=== PATIENT | female | born 1945 | race Caucasian/White ===

== ENCOUNTER 2016-04-14 13:03 | Inpatient (IN) | payer MEDICARE, OTHER ==
[~2016-04-14] VITALS: Ht 142.2 cm; Wt 42.9 kg
[~2016-04-14 13:03] MED LIST: ASPI81TA3 PO; BUPR150T12 PO; CITA40TA13 PO; FLUT16SP NOSTRIL; GABA-504 PO; KLO5T PO; LEVO25TA5 PO; METH-295 PO; METO10TA3 PO; MULT-1018 PO
[2016-04-14] MEDS ORDERED: KLO5T PO (17:08)
[2016-04-14] MEDS ORDERED: LISI-571 PO (17:15)
[2016-04-14] MEDS ORDERED: ATOR20TA PO (17:18)
[2016-04-14] MEDS ORDERED: Alum-Mag Hydrox-Simeth 30 mL Suspension PO PRN (18:25)
[2016-04-14] MEDS ORDERED: Magnesium Hydroxide 10 mL Oral Concentration PO PRN (18:25)
[2016-04-14] MEDS ORDERED: Benzocaine-Menthol Lozenge 2/Pkg PO PRN (18:25)
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
[2016-04-14 20:29] VITALS: BP 135/74; PULSE 56; RESP 18
[2016-04-14] MEDS: Zolpidem 5 mg Tablet for FEMALE or >65YO PO PRN (22:44)
--- NOTE | 2016-04-15 04:03 | NUR ---
Observations from [id number] Pts thinking has been strange and delusional. "I need my nurse to make sure my urine shows MDMA because that's what put me in here" "I don't want to talk to the Dr. due to conflict of interest because I used to work here, I only want to talk to the reading teacher." Pt has also been very needy with staff, making various request throughout the night. Pt attend wrap up group, but wasn't here this morning to set a goal so pt did not want to participate. Pt appeared asleep at 2315 and has remained asleep throughout the night. Pt has been monitored every 15 minutes as directed.
--- NOTE | 2016-04-15 05:27 | NUR ---
Sleep 11p-7a Adequate sleep through the night with no noted distress or awakening per protocol checks. Total sleep 5.75+ hours. PRN Ambien used to assist with sleep.
[2016-04-15 10:08] VITALS: BP 150/63; PULSE 46; RESP 12
[2016-04-15] MEDS: hydrOXYzine Pamoate 25 mg Capsule PO PRN (13:33)
--- NOTE | 2016-04-15 17:37 | NUR ---
Lug Loader./ c.m. S.:"I'm doing better today. I don't need to be here. I have a lot of legal things to take care of in [place] but I'm stuck here. I'm not psychotic. Nobody believes me. I don't want my children to be involved in my care here. " O.: met with pt. to complete Psychosocial and Treatment plan and goals. Pt. is KENDRA 72 hrs hold as GD. She had multiple hospitalizations in the past. She is connected with mental health services. She lives alone. She didn't want to share her info with her adult children. She denied SI/HI, denied AH/VH, denied depression or anxiety. She talked about "that girl who is doing all that trouble." She denied using drugs. She believed that her primary diagnosis is ADHD. A.: pt. is cooperative, confused and delusional, internally preoccupied. P.: monitor behavior, monitor for safety, monitor meds intake; follow care plan.
--- NOTE | 2016-04-15 17:52 | NUR ---
Observations 0700 to 1900 Pt affect and mood was isolative, flat and needy at times. Pt was in her room most of the day. Pt ate meals in D.R. and ate approximately 75% of meals. Pt ate snack. Pt behavior was appropriate. Pt was in her room most of the shift. Pt gives short answers when approached. Pt did not attend groups or unit activities today. Pt attended community meeting and set a goal for the day. Pt rated her mood 5-6 out of 10, with 10 being the highest. Pt was observed every 15 minutes throughout the shift as ordered.
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
--- NOTE | 2016-04-15 20:46 | NUR ---
PT REFUSED HS HALDOL Pt. reports Haldol "makes me agitated" and that she would prefer to only take it in the a.m. because otherwise it will keep her up at night. Education provided.
--- NOTE | 2016-04-15 20:58 | HP ---
[address] [address] HISTORY AND PHYSICAL PATIENT: KLEVER SMITH : 1945 MR#: [id number] ADMIT: 04/14/2016 JOB ID: [id number] IDENTIFICATION: The patient is a 69-year-old, single, white female. She lives independently in the residential center in [place]. She has two daughters and a son. 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 She receives Social Security fdc monthly. She lived in [place] until 2013 when she moved to [place]. She is followed here in [place] by Dr. Babin. REASON FOR ADMISSION: Client was detained at [facility] in [place] after her landlord called the police concerned that the patient was confused, disorganized, and causing significant disruption. She was KENDRA'd on a 72-hour hold as gravely disabled. HISTORY OF PRESENT ILLNESS: The patient presents today for evaluation and treatment of psychosis. I met with her for a 60- minute evaluation and reviewed course and records kept by [facility] in [place] as well as [facility] staff records. She has been here on similar involuntary treatment hold in 2012 and 2013. Client's main issue is psychosis and paranoia. Co-occurring issues are interpersonal relationship conflicts related to stress at her home. The condition is acute and has been developing over six months. At present, it is of a moderate intensity manifesting with symptoms of increased paranoia, paranoid delusions, and increased thought disorganization. She has a rather fixed delusional belief that a neighbor is stalking her, is breaking into her house, and is drugging her at night. All the above are made worse by poor sleep, and when she is not taking her medications. She reported to the [facility] staff that she has not been taking her medications for the past six months. To me, she reports that she has been taking her gabapentin, her Celexa, Klonopin, and Ritalin, but is not taking her Wellbutrin. She is currently presenting with no signs of emotional liability, and mild cognitive deficits. She is showing moderate impairment in insight, judgment and reality testing. Her coping skills, for unclear reasons, have been overwhelmed. PSYCHIATRIC REVIEW OF SYSTEMS: For depression and krista were negative. Again it is unclear what stressors may be driving this current episode. PAST HISTORY MEDICATIONS: 1. Aspirin 81 daily. 2. Gabapentin 400 q.i.d. 3. Levothyroxine 25 daily. 4. Celexa 40 daily. 5. Klonopin 0.75 daily. 6. Ritalin 10 q.i.d. ALLERGIES: None. ILLNESSES: Bronchitis, hypothyroidism, gastroesophageal reflux disease, back pain. Has had two surgeries. FAMILY MEDICAL HISTORY: Noncontributory. PAST PSYCHIATRIC HISTORY: Client sees Dr. Babin outpatient since 2013 when she was admitted here on involuntary treatment hold. She has also seen Dr. Audelia Curiel, and has been diagnosed intermittently with bipolar disorder, attention deficit disorder, alcohol abuse, and personality disorder. PSYCHOSOCIAL HISTORY: Client born in [place]. She states she had great parents and a good childhood. 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 HISTORY OF TRAUMA: Client denies. DRUG AND ALCOHOL: Client denies lethality. Client denies previous suicide attempt. No suicidal ideation. RELATIONSHIP: for 25 years. . Two daughters, one son. CHEONDOISM: Yazidism. LEGAL HISTORY: None. PHYSICAL EXAMINATION: Well-hydrated, well developed, normal gait. Balance steady. Vital signs: 150/63, pulse 46, respirations 12. Afebrile. MENTAL STATUS EXAMINATION: Client neatly dressed, calm, pleasant. She had good eye contact. Her behavior was somewhat restless but easily redirectable and her attitude was pleasant and cooperative. Her speech was somewhat pressured. Mood was euthymic. Affect congruent. Normal intensity. Thought process: Client has a difficult time relating a coherent history of recent events. Her thought process is generally concrete but she was able to appreciate both simple and complex abstractions that does not appear to be responding to internal stimuli. She denies ideas of reference. No loosening of associations. Thought content: Significant for themes of wanting to have clarity about what is happening and why she was detained. She is looking forward to returning back to her home and feels like she was misunderstood by the ER staff. She does believe that a neighbor is stealing her medications, is breaking into her house at night, and drugging her while she is asleep. Client alert and oriented to person, place, and date. Immediate, short, and long-term memory were actually intact. Client had 27/30 on a Mini-Mental Status Exam. Concentration and attention were mildly impaired. Insight and judgment: Moderate impairment. Impulse control highly contained. Reality testing: Moderate impairment, mostly due to a rather fixed delusional belief. Competence to handle current stressors: Is currently being overwhelmed. LABS: CBC, liver function, electrolytes, thyroid normal. There was some note in [facility] that the urine tox screen was positive for Ecstasy on one try and negative on the next. I could not find any verification in the records that were sent to us about a UDS. Client denies any drug use. 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 She intermittently discontinues her medication and requires inpatient hospitalizations after 3-6 months being off her meds. She describes being off her meds for the past six months to [facility] staff. To me she states she has been taking her meds regularly except has been off Wellbutrin for two months. It is difficult to place all this together. Client was significantly improved today from the reports that I had over the weekend. She did receive both Geodon and Seroquel prior to being transferred from [facility] and it is possible some of the antipsychotic medications are helping her clear. DIAGNOSIS: [place] I. 1. Psychosis unspecified. 2. Rule out bipolar mood disorder with psychosis. 3. Rule out iatrogenic stimulants triggering psychosis and krista. 4. History of alcohol abuse. [place] II. Defer. [place] III. Bronchitis, hypothyroidism, gastroesophageal reflux disease. [place] IV. Unknown. [place] V. Current Global Assessment of Functioning equal to 35. PLAN: Recommend client be admitted to our unit and be provided with a high degree of safety through the structure and active adult engagement she will receive here. Will have her participate in one-to-one unit and group activities focused on improving coping skills and reality based thinking. Will continue client on gabapentin at 400 q.i.d. Will decrease Celexa to 20 mg in case this is triggering krista and psychosis. Will decrease Ritalin to 5 mg q.i.d. to minimize potential contribution to psychosis. Will continue Klonopin at 0.75 t.i.d. Client is on an involuntary treatment hold, but if she continues to improve, imagine we will be able to drop this hold and discharge her later this week.
--- NOTE | 2016-04-16 01:21 | NUR ---
Observations 1900 to 0700 Pt isolated to herself for most of the evening. Pt did come out of her room briefly on a few occasions. Pt seemed a bit upset and anxious. Pt was polite and cooperative with staff. Pt first appeared asleep at 22:00 and was observed every 15 minutes through the night as directed.
--- NOTE | 2016-04-16 05:54 | NUR ---
Nursing Noc Pt's presentation continues the same. She has moments of tearfulness, cooperative with care, fixated on having paperwork from her belongings to organize her papers. She declined scheduled HS dose of Haldol preferring to only take it in the morning. Adequate sleep through the night with no noted distress or awakening per protocol checks. She has remained asleep since 2200 with over 8 hours.
[2016-04-16] MEDS: hydrOXYzine Pamoate 25 mg Capsule PO PRN (12:12)
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
--- NOTE | 2016-04-16 15:10 | NUR ---
Rehab Services Aide./ c.m. S.:"I feel fuzzy . I can't find words that I know well. This is all because of Haldol." O.: met with pt. in her room. She was sitting at the edge of her bed and writing something on a notepad. "I'm preparing for my meeting with my Life Enrichment Director. I have a lot of concerns and a lot of questions. It's not fare for me to be here." Pt. complained about cognitive issues. She also complained about feeling restless and anxious today. She rated anxiety at 6-7/10 at that time. "I felt pretty good yesterday and now I don't feel as good at all." She denied SI/HI, denied AH/VH, denied depression. A.: pt. is cooperative, isolative, quiet, internally preoccupied. P.: monitor behavior, court tomorrow, monitor meds intake; follow care plan.
[2016-04-16 15:16] VITALS: BP 138/71; PULSE 65
--- NOTE | 2016-04-16 16:05 | NUR ---
Observations 0700 to 1900 Pt affect and mood was isolative, flat and preoccupied. Pt ate meals in D.R. and ate approximately 75% of meals. Pt ate snack. Pt behavior was appropriate. Pt spent time going through suitcase and paperwork. Pt is going through paperwork. Pt is perseverating over paperwork and going to court tomorrow. Pt did not attend groups or unit activities today. Pt did attend community meeting and set a goal for the day. Pt rated her mood 6 out of 10, with 10 being the highest. Pt was observed every 15 minutes throughout the shift as ordered.
--- NOTE | 2016-04-16 17:28 | PCM.PNPSY ---
Subjective Date of Service Apr 16, 2016 Subjective I spent 30 minutes both reviewing treatment plan and providing supportive/ educational psychotherapy. I spent more than 50% of the time counseling the patient. I reviewed the treatment plan with the patient and discussed options available including the potential risks, benefits and side effects. Steph reports a marked improvement in thought organization and mood stability. Staff reports that she has been active and participating well in one -to-one unit and group activities. She slept 8 hours and denies depression krista or psychotic symptoms review. She denies medication side effects. Patient was able to identify her medications and what they were used to treat. She appeared to understand the need for medications by the questions she asked during our discussion. She declined offers of Haldol saying that in the past that has made her too sedated and groggy. She was able to future plan on how to take care of herself. She was pleasant and easily engaged. She showed good insight and good judgment today Current Medications Current Medications Aspirin 81 mg DAILY PO Last administered on 04/16/16 08:56; Admin Dose 81 MG; Start 04/15/16 at 13:35 Atorvastatin Calcium 20 mg DAILY PO Last administered on 04/16/16 08:56; Admin Dose 20 MG; Start 04/15/16 at 08:30 Benzocaine/Menthol 1 lozenge Q2H PRN PO Last administered on 04/15/16 15:59; Admin Dose 1 LOZENGE; Start 04/14/16 at 18:25 Citalopram Hydrobromide 20 mg DAILY PO Last administered on 04/16/16 08:56; Admin Dose 20 MG; Start 04/15/16 at 13:35 Clonazepam 0.5 mg TID PO Last administered on 04/16/16 14:41; Admin Dose 0.5 MG ; Start 04/14/16 at 20:30 Gabapentin 400 mg QID PO Last administered on 04/16/16 16:15; Admin Dose 400 MG ; Start 04/15/16 at 16:30 Haloperidol 0.25 mg BID PO Last administered on 04/16/16 09:09; Admin Dose 0.25 MG; Start 04/15/16 at 13:35 Hydroxyzine Pamoate 25 mg Q4H PRN PO Last administered on 04/16/16 12:12; Admin Dose 25 MG; Start 04/14/16 at 18:30 Levothyroxine Sodium 25 mcg DAILY PO Last administered on 04/16/16 08:56; Admin Dose 25 MCG; Start 04/15/16 at 13:35 Methylphenidate HCl 5 mg QID PO Last administered on 04/16/16 16:15; Admin Dose 5 MG; Start 04/15/16 at 16:30 Multivitamins/ Minerals Therapeutic 1 tablet DAILY PO Last administered on 08:55; Admin Dose 1 TABLET; Start 04/15/16 at 13:41 Zolpidem Tartrate 5 mg HS PRN PO Last administered on 04/14/16 22:44; Admin Dose 5 MG; Start 04/14/16 at 18:25 Mental Status Exam Vital Signs Vital Signs Date Time Temp Pulse Resp B/P Pulse Ox O2 Delivery O2 Flow Rate FiO2 04/16/16 15:16 36.5 65 138/71 Appearance: Neat/well groomed Attitude: Pleasant, Cooperative Behavior: No unusual behavior Affect: Well Modulated/Appropriate Mood: Euthymic Thought Process/Associations: Logical/Sequential Speech Production: Normal Speech Rate: Normal Speech Articulation: Normal Thought Content: Appropriate Danger to Self/Suicidal Ideati: None Danger to Others: None Consciousness: Alert Orientation: Person, Place, Date, Situation Memory: Grossly Intact Estimate Intellectual Function: Average Basis for IQ estimate: Awareness current events Attention/Concentration & Cogn: Grossly Intact Cognitive Testing Method: Abstract Reasoning during interview Insight: Good Judgement: Good Mental Health Plan 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 She intermittently discontinues her medication and requires inpatient hospitalizations after 3-6 months being off her meds. She describes being off her meds for the past six months to [facility] staff. To me she states she has been taking her meds regularly except has been off Wellbutrin for two months. It is difficult to place all this together. Steph was significantly improved again today even though she is declining offers of antipsychotic medication. If she continues to improve with anticipate discharge in 48-72 hours. [place] I. 1. bipolar mood disorder with psychosis. 3. Rule out iatrogenic stimulants triggering psychosis and krista. 4. History of alcohol abuse. [place] II. Defer. [place] III. Bronchitis, hypothyroidism, gastroesophageal reflux disease. [place] IV. Unknown. [place] V. Current Global Assessment of Functioning equal to 40. Medications Treatments Patient is being provided with a high degree of safety through the structure and active adult engagement. We will focus on developing improved coping skills and identifying stressors that may have led to current episode. We will attempt to: Integrate into therapeutic groups, milieu and individual therapy. Maintain in a closely monitored and structured unit Provide low-stimulation environment Obtain collateral data to assist in treatment planning Assess degree of lability of affect and impulse control Complete safety plan Decrease frequency of relapse and need for re-hospitalization Establish a consistent sleep pattern Medication effective in stabilization of mood and/or thought process Tolerates medication without side effects Patient will be on the following psychiatric medications: Gabapentin 400 4 times a day Celexa 20 mg daily Ritalin 5 mg 4 times a day Klonopin 0.75 mg 3 times a day Education: Evaluate iatrogenic drug use as an etiology Address patient's legal status Patient is on a 72 hour involuntary treatment hold. Patient will be given the opportunity to talk to her senior data quality analyst and the police judge on Friday unless the hold was dropped due to patient improving Jimi Ramires MD Apr 16, 2016 17:28
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
[2016-04-17] MEDS: Zolpidem 5 mg Tablet for FEMALE or >65YO PO PRN (01:15)
[2016-04-17] MEDS: hydrOXYzine Pamoate 25 mg Capsule PO PRN (01:16)
--- NOTE | 2016-04-17 01:57 | NUR ---
Observations 1900 to 0700 Pt isolated to herself for most of the evening. Pt did come out of her room briefly on a few occasions. Pt was going through her papers into the wire rope sling maker hours. Pt was polite and cooperative with staff. Pt first appeared asleep at 02:00 and was observed every 15 minutes through the night as directed.
--- NOTE | 2016-04-17 05:24 | NUR ---
Sleep 11p-7a Pt anxious and fixated on her loose leaf paper which she spent several hours organizing on the floor of her room "preparing for court". She decided she needed rest for court today and requested prn medication for sleep. She received Ambien 5mg po prn & Vistaril 25g po prn @ 0115 with good effect. She has remained asleep since 0200 with no further distress or awakening per protocol checks. Total sleep 4+ hours.
[2016-04-17 09:47] VITALS: BP 136/74; PULSE 57; RESP 16
[2016-04-17] MEDS ORDERED: KLO5T PO (12:49)
[2016-04-17] MEDS ORDERED: METH5TAB88 PO (12:49)
[2016-04-17] MEDS ORDERED: GABA400C PO (12:49)
[2016-04-17] MEDS ORDERED: CITA20TA PO (12:49)
--- NOTE | 2016-04-17 12:52 | PCM.DIMED ---
Discharge Instructions Date of Service Apr 17, 2016 Dates of Hospitalization Apr 14, 2016 at 16:08 Discharge Diagnosis Discharge Diagnosis 1. bipolar mood disorder with psychosis. 3. Rule out iatrogenic stimulants triggering psychosis and krista. 4. History of alcohol abuse. [place] II. Defer. [place] III. Bronchitis, hypothyroidism, gastroesophageal reflux disease. [place] IV. Unknown. [place] V. Current Global Assessment of Functioning equal to 45 Medication Instructions I Strongly encouraged patient to follow up with outpatient care: 1-Recommended patient takes medication as prescribed and not alter this unless under the direct care of a provider: Gabapentin 400 4 times a day Celexa 20 mg daily Ritalin 5 mg 4 times a day Klonopin 1mg hs 2-Recommend client refrain from recreational drugs and alcohol while taking psychiatric medications. 3-Recommend patient attempt to find a therapist or group to deal with impulse control and interpersonal relationship conflicts Diet No restrictions Activity No restrictions Call your provider Fever or Chills Patient Instructions Follow-up plan Plan to follow-up with Dr. Babin, appointment to be arranged within the next 2 weeks Follow-up with PCP in: 2 weeks Jimi Ramires MD Apr 17, 2016 12:52
--- NOTE | 2016-04-17 13:43 | DIS ---
[address] [address] DISCHARGE SUMMARY PATIENT: KLEVER SMITH : 1945 MR#: [id number] ADMIT: 04/14/2016 JOB ID: [id number] DIS: IDENTIFICATION: Patient is a 69-year-old single white female. She lives independently in [facility] in [place]. She has two daughters and a son. 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 She receives social security senior living monthly. She lived in [facility] until 2013, when she moved to [place]. She works with Dr. Babin here in [place]. REASON FOR ADMISSION: Client detained at [facility] in [place] after her landlord called the police, concerned that the patient was confused, disorganized, and causing disruption. She was KENDRA'ed on a 72-hour involuntary treatment hold. 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 She described being off her meds for some time to the [place] staff. To me she stated she had been taking her meds regularly, except she had been off Wellbutrin for two months. It was difficult to place all this together. At the time the patient arrived she was already significantly improved relative to the reports that I have over the weekend. She did receive both Geodon and Seroquel prior to being transferred from [place] and it is possible that the antipsychotic doses she got there were helping her. HOSPITAL COURSE: Client was admitted to our unit was provided with a high degree of safety through the structure and active adult engagement she received. We had her participate in one-to-one, unit, and group activities focused on improving reality-based thinking and planning for how she could get her needs met outside. Here on the unit she showed minimal signs of impulse control difficulty. Her reality testing was moderately impaired initially. She has a rather fixed delusional belief that she is being stalked by someone called Risa. Over the three days she stayed here, the intensity of this delusion decreased, but it remains present. Her thought process and has been generally concrete but she was gradually able to appreciate more complex abstractions. She took medications as prescribed including gabapentin, Celexa, Ritalin, and Klonopin. She declined offers of an antipsychotic and tended to improve without this. I did decrease her Celexa to 20 mg per day as I was concerned she was getting overstimulated. I also decreased her Ritalin from 10 mg four times a day to 5 mg four times a day to minimize potential contributions to confusion and agitation. Klonopin was continued at 0.75 t.i.d. and then transitioned to 1 mg h.s. Over the past 48 hours she showed a clear thought process and good judgment, insight, and reality testing. Today she is requesting discharge. I had scheduled a 14-day hearing; however, due to the patient's improvement and her plan, I am dropping the hold and discharging her today. MENTAL STATUS EXAMINATION: Client neatly and stylishly dressed. Good eye contact. Appears frail, but is very vital. Her behavior was calm. Attitude cooperative and pleasant. Speech normal rate and rhythm, not pressured. Mood euthymic. Affect congruent. Normal intensity. Thought process: Client is able to relate a more coherent history. Did not appear to be responding to internal stimuli. No signs of psychosis. Thought content: With multiple themes of future planning; how to get her needs met, how to take care of her finances, and connect with her family. Denied suicidal ideation, plan, or intent. Insight and judgment markedly improved. Impulse control highly contained. Reality testing intact. Competence to handle current stressors appears to be at baseline. DISCHARGE DIAGNOSIS: [facility] I: 1. Bipolar mood disorder with psychosis, currently in early remission. 2. Rule out iatrogenic causes of agitation; ? Celexa and Ritalin doses. 3. History of alcohol abuse. [facility] II: Deferred. [facility] III: 1. Bronchitis. 2. Hypothyroidism. 3. Gastroesophageal reflux disease. [facility] IV: Unknown. [facility] V: Current Global Assessment of Functioning equal to 45. DISCHARGE MEDICATIONS: 1. Celexa 20 mg daily. 2. Klonopin 1 h.s. 3. Gabapentin 400 q.i.d. 4. Methylphenidate 5 mg q.i.d. 5. Aspirin daily. 6. Lipitor daily. 7. Levothyroxine 25 mcg daily. 8. Metoclopramide 10 mg t.i.d. 9. Multivitamin daily. ACTIVITIES AND DIET: Recommend client refrain from recreational drugs and alcohol while taking psychiatric medications. Recommend she take medications as prescribed and not change unless under the supervision of a physician. CONDITION ON DISCHARGE: Good. PROGNOSIS: Good. DISCHARGE FOLLOWUP: Client to follow up with Dr. Babin within the next two weeks.
--- NOTE | 2016-04-17 14:37 | NUR ---
Nursing Discharge- Pt. was discharged today at 1340 by taxi to the [facility] station. The Pt. planned to go by bus to [place] were she had rented a condo. She had slept 4 plus hours last night per report. Pt. was awake and dressed for breakfast. She eat well. Pt. expressed an understanding of her follow up medications and plans. She reported that she was looking forward to her stay in [place]. She denied depression, auditory or visual hallucinations.
--- NOTE | 2016-04-17 17:11 | NUR ---
[employer] Set Up Operator/Counselor: S: "Please go easy on me when you write in my records." O: Met with patient. Patient slept 4+ hours last night per staff. Patient denied S/I and H/I. She also denied auditory and visual hallucinations. Depression is 0/10 and anxiety is 1/10. When asked her mood, patient stated, "I feel in control." Out-patient appointments: Jess Roger, counselor, 04/24/16 at 1:45pm and Dr. Babin, psychiatrist, 05/08/16 at 2:30pm. A: Patient is cooperative, hopeful. P: Follow care plan, coordinate with out-patient providers.
--- NOTE | 2016-04-17 18:17 | NUR ---
[facility] Day Shift Pt maintained behavioral control throughout the shift. Pt affect appears mostly anxious, though less so than noted on previous shifts. Pt spends most of the shift preparing for DC and requesting the time to sort through her belongings. Pt is able to complete the DC process without incident, but is easily distractible and slow to complete tasks. Pt is pleasant with staff and peers when active on the unit. Pt attended community meeting in the AM, but is unable to attend group activities due to court proceedings and DC planning. Pt attended breakfast and lunch and ate approx 80% of both meals.
== END 2016-04-17 13:35 | disposition home or self-care (01) | DRG 885 ==
LOC: MHC 16:08
PROVIDERS: ADMIT Psychiatry & Neurology Psychiatry; ATTEND Psychiatry & Neurology Psychiatry
DX: F31.9 Bipolar disorder, unspecified (principal); F29 Unspecified psychosis not due to a substance or known physiological condition; E03.9 Hypothyroidism, unspecified; K21.9 Gastro-esophageal reflux disease without esophagitis